=== PATIENT | male | born 1995 | race Hispanic/Latino ===

== ENCOUNTER 2020-11-03 00:09 | Emergency (ER) | payer OTHER ==
[~2020-11-03] VITALS: Ht 175.3 cm; Wt 94.8 kg
[2020-11-03] MEDS ORDERED: MORPHINE 4 MG SYG IV ONE (00:30)
[2020-11-03 00:47] VITALS: BP 150/83
[2020-11-03 00:53] LABS: BASOPHILS % (AUTO) 1.3 % (0.0-5.0); EOSINOPHILS % (AUTO) 5.6 % (0.0-8.0); HEMATOCRIT 43.9 % (42-54); LYMPHOCYTES % (AUTO) 37.8 % (21.0-51.0); MEAN CORPUSCULAR HEMOGLOBIN 30.8 pg (27.0-33.0); MEAN CORPUSCULAR HGB CONC 34.9 g/dL (32.0-36.0); MEAN CORPUSCULAR VOLUME 88.5 fL (79-99); MONOCYTES % (AUTO) 8.5 % (3.0-13.0); NEUTROPHILS % (AUTO) 46.5 % (40.0-77.0); PLATELET COUNT (AUTO) 313 K/uL (130-400); RED BLOOD CELL COUNT(AUTO) 4.96 MIL/uL (4.50-6.20); RED CELL DISTRIBUTION WIDTH 12.3 % (11.0-15.5); WHITE BLOOD COUNT (AUTO) 8.8 K/uL (4.8-10.8)
[2020-11-03 01:02] LABS: CREATININE 1.2 mg/dL (0.5-1.5); POTASSIUM 3.2 mmol/L (3.5-5.1)
[2020-11-03 01:07] LABS: ALBUMIN 4.4 g/dL (3.5-5.0); BILIRUBIN,TOTAL 0.4 mg/dL (0.2-1.0)
[2020-11-03 01:59] VITALS: BP 132/88
[2020-11-03] MEDS ORDERED: IOHEXOL-350 75 ML VIAL IV ONE (03:05)
[2020-11-03 03:42] VITALS: BP 132/80
[2020-11-03 04:29] VITALS: BP 132/79
[2020-11-03 05:10] LABS: APPEARANCE,URINE Clear (CLEAR); BILIRUBIN,URINE Negative (NEGATIVE); COLOR,URINE Yellow (YELLOW); GLUCOSE, URINE (UA) Negative (NEGATIVE); KETONES,URINE Negative (NEGATIVE); LEUKOCYTE ESTERASE ,URINE Negative (NEGATIVE); NITRATE,URINE Negative (NEGATIVE); OCCULT BLOOD,URINE Negative (NEGATIVE); PH,URINE 5.5 (5.0-8.0); PROTEIN,URINE Negative (NEGATIVE); UROBILINOGEN,URINE 0.2 mg/dL (0.2-1.0)
[2020-11-03] MEDS ORDERED: DOXY100C2 PO (05:27)
[2020-11-03] MEDS ORDERED: IBUP-2070 PO (05:27)
[2020-11-03] MEDS ORDERED: KCL 20 MEQ ERTAB PO ONE (05:30)
[2020-11-03 06:06] VITALS: BP 126/76
[2020-11-04 20:08] LABS: CHLAMYDIA DNA N.A.AMPLIFY Negative (Negative)
== END 2020-11-03 06:34 | disposition home or self-care (01) ==
LOC: EDH 00:09
DX: N50.3 Cyst of epididymis (principal); F41.9 Anxiety disorder, unspecified
CPT/HCPCS: 36415; 72193; 76870; 80053; 81003; 85025; 87486; 87797; 96374; 99285; J2270; Q9967